=== PATIENT | female | born 1955 | race Caucasian/White ===

== ENCOUNTER 2018-12-19 21:49 | Emergency (ER) | payer MEDICARE, SELFPAY ==
[2018-08-22 09:48] VITALS: BMI 34.2
[2018-12-19 21:50] VITALS: BP 161/88; PULSE 68; RESP 18; TEMP 36.8; O2SAT 97; BMI 35.4
--- NOTE | 2018-12-19 21:54 | US_ITS ---
STUDY: ABDOMINAL ULTRASOUND - RIGHT UPPER QUADRANT REASON FOR VISIT: Female, 63 years old. Right upper quadrant pain. TECHNIQUE: Ultrasound evaluation of the right upper quadrant was performed with real-time and static bach-scale imaging. TECHNICAL QUALITY: Adequate. COMPARISON: None. FINDINGS: Liver: The liver measures 15.3 cm. There is increased echogenicity consistent with fatty infiltration. The bile ducts are within normal limits. There is hepatic color flow. The direction of portal flow is hepatopetal. Gallbladder: Normal distended gallbladder. The gallbladder wall measures 2 mm. There is a negative sonographic Feliz's sign. There is no pericholecystic fluid. Multiple shadowing gallstones. Common Bile Duct (C.B.D.): The common bile duct measures 3 mm. Pancreas: Demonstrated portions are unremarkable. Distal body and tail are not seen Right Kidney: Normal size of the right kidney. The right kidney measures 11.9 x 3.9 x 5 cm. Normal renal cortex. The right cortex measures 1.1 cm. There is no demonstrated renal mass or cyst. There is no right hydronephrosis. US/Gallbladder IMPRESSION: 1. Cholelithiasis. No acute cholecystitis. 2. Hepatic steatosis. Electronically Signed: Hannah Jason MD at 23:59 EDT Tel , Service support ,
--- NOTE | 2018-12-19 21:56 | ED.DCSUM_ITS ---
History of Present Illness Chief Complaint: Abd Pain Informant: Patient Onset: Today Context: Sudden Onset Timing: Continuous Current Severity: Moderate Maximum Severity: Moderate Narrative: The patient is a previously healthy 63-year-old female with no significant medical history presents to the emergency department with approximately 2 hours of persistent pain in her right upper quadrant that radiates to her back. She states that she ate dinner around 5:00. She states she had a steak and baked potato. She states about an hour and 1/2 to 2 hours after that, she began to have this pain. She states that this is the fourth time she is had it, but she is never had to seek care because it will usually go away. She denies any fevers. She does admit to some nausea. States pain radiates under her shoulder. The patient has history of prior abdominal hysterectomy. She has not found anything that improve the symptoms. Prior similar symptoms: Yes Recent Illness/Hospitalization: No Past Medical History - Allergies and Home Meds Allergies/Adverse Reactions: Allergies No Known Allergies Allergy (Verified 12/19/18 21:50) Primary Care Physician: Mo Rojas [Primary Care Provider] - Prior records reviewed: Yes Past Medical History: None Surgical History: no surgical history Smoking Status: Never smoker Review of Systems General: Denies: Chills, Fever, Sweats Eyes: Denies: Visual changes - bilaterally, Diplopia ENT: Denies: Rhinorrhea, Sore throat Cardiovascular: Denies: Chest pain, Palpitations Respiratory: Denies: Dyspnea, Cough, Dyspnea on exertion Gastrointestinal: Reports: Abdominal pain, Nausea. Denies: Vomiting, Diarrhea, Melena, Hematochezia Genitourinary: Denies: Dysuria, Hematuria, Frequency Musculoskeletal: Denies: Back pain, Extremity Pain Skin: Denies: Rash, Wounds Neurological: Denies: Headache, Weakness, Numbness Physical Exam Vital Signs/Narrative: Vital Signs Temp Pulse Resp BP Pulse Ox 12/19/18 21:50 98.3 F 68 18 161/88 H 97 Inital Vital Signs reviewed: Yes General: Well nourished, Well developed, No Acute Distress Head: Normocephalic, Atraumatic Eyes: Perrl, EOMI ENT: Moist mucous membranes, No rhinorrhea Neck: Supple, Nontender Cardiovascular: Regular rate, Regular rhythm, No murmurs Respiratory: No distress, CTA bilaterally, Chest nontender Abdomen: Soft, Nondistended, Normal bowel sounds, No masses, Tender Back: Nontender, Normal Inspection Extremities: Nontender, No edema Skin: Normal color, No rash Neurological: Alert, Oriented x3, Cranial nerves II-XII grossly intact, Normal Strength, Normal Sensation Psychological: Normal affect, Normal Mood Diagnostic/Tx/Re-eval Abnormal Lab Results 12/19/18 12/19/18 22:00 22:00 WBC 11.5 H RBC 5.44 H Hgb 14.3 Hct 44.5 MCV 81.8 MCH 26.3 L MCHC 32.1 RDW Std Deviation 40.6 RDW Coeff of James 13.8 Plt Count 318 MPV 10.2 Immature Gran % (Auto) 0.300 Neut % (Auto) 52.3 Lymph % (Auto) 36.6 Cavalier % (Auto) 7.9 Eos % (Auto) 2.4 Baso % (Auto) 0.5 Absolute Neuts (auto) 6.0 Absolute Lymphs (auto) 4.22 Nucleated RBC % 0 Sodium 140 Potassium 3.9 Chloride 105 Carbon Dioxide 26.0 Anion Gap 9 BUN 18 Creatinine 0.96 Estim Creat Clear Calc 41.97 Est GFR (MDRD) Af Amer 75 Est GFR (MDRD) Non-Af 62 BUN/Creatinine Ratio 18.7 Glucose 121 H Calcium 9.3 Total Bilirubin 0.30 Direct Bilirubin 0.11 AST 18 ALT 36 Alkaline Phosphatase 133 H Total Protein 7.9 Albumin 3.9 Globulin 4.0 Lipase 136 - Medical Decision Making The patient presents to the emergency department with right upper quadrant pain a few hours after eating a heavy fatty meal. She does have a positive Feliz sign. Screening labs were obtained. The patient was given analgesics and antiemetics. Her pain had resolved. Screening labs do show mild leukocytosis which I feel is likely reactive, but there is no obstructive pattern of the liver functions. Patient was sent for formal ultrasound. This shows a normal common bile duct and a normal bladder wall. She does have large stones and some sludge. My suspicion is that she has symptomatic biliary colic. However, she has no evidence of acute cholecystitis or obstruction. She is now pain-free. I did discuss the patient with Dr. Nino for close follow-up as I do feel the patient is likely going to need outpatient cholecystectomy. The patient is comfortable with this plan of care. She was counseled on foods to avoid and dietary modifications. She will be given a short course of analgesics and appropriate outpatient follow-up. She was also counseled on reasons to return to the emergency department. Impression 1. Symptomatic biliary colic ED Disposition - Plan for ED Patient: Instructions: BILIARY COLIC with Gallstone (Confirmed) Prescriptions: Hydrocodone Bitart/Apap 5-325 [Rougon 5MG-325MG] 1 tab PO Q6H PRN PRN 3 Days #10 tab PRN Reason: Pain Prescription Printed Ondansetron [Zofran Odt] 4 mg PO Q8H PRN PRN #10 tab PRN Reason: Nausea Prescription Printed Referrals: Darcie Nino MD [STAFF PHYSICIAN] -
[2018-12-19] MEDS: Ondansetron 4 MG/2 ML Vial IV (22:04)
[2018-12-19] MEDS: Ketorolac 30 MG/ML Syringe IV (22:04)
[2018-12-19] MEDS: Morphine 4 MG/ML Syringe IV ×2 (22:04→22:44)
[2018-12-19] MEDS: 0.9% Normal Saline 1,000 ML 1000 ML IV (22:04)
[2018-12-19 22:16] LABS: Absolute Lymphocyte Count 4.22 X10^3/uL (0.83-4.51); Basophil# 0.06 X10^3/uL; Basophil% 0.5 % (0-1); Eosinophil# 0.28 X10^3/uL; Eosinophils% 2.4 % (0-5); Hematocrit 44.5 % (37-47); Hemoglobin 14.3 g/dL (12.0-15.0); Lymphocyte # 4.22 X10^3/ul (4.0); Lymphocyte % 36.6 % (19-41); Mean Corp Hgb Conc 32.1 g/dL (32-36); Mean Corpuscular Hgb 26.3 pg (27.0-32.0); Mean Corpuscular Volume 81.8 fL (81-99); Mean Platelet Vol. 10.2 fl (6.2-12.0); Monocyte# 0.91 X10^3/uL; Monocyte% 7.9 % (0-10); NRBC Flagged by Analyzer 0 % (0-5); Neutrophil # 6.01 X10^3/uL (2.7-7.7); Neutrophil % 52.3 % (47-70); Platelet Count 318 K/mm3 (150-450); RBC Distribution Width CV 13.8 % (11.6-14.6); RBC Distribution Width SD 40.6 fl (35.1-43.9); Red Blood Count 5.44 M/mm3 (4.2-5.4); White Blood Count 11.5 K/mm3 (4.4-11.0)
[2018-12-19 22:23] LABS: AST(SGOT) 18 U/L (15-37); Alanine Aminotransfer ALT/SGPT 36 U/L (13-56); Albumin, Serum 3.9 g/dL (3.2-5.0); Alkaline Phosphatase 133 U/L (45-117); Anion Gap 9 (5-15); BUN 18 mg/dL (7-18); BUN/Creat Ratio 18.7 RATIO (10-20); Bilirubin, Direct 0.11 mg/dL (0.00-0.30); Calcium,Total 9.3 mg/dL (8.5-10.1); Chloride 105 mmol/L (98-107); Creatinine, Serum 0.96 mg/dL (0.55-1.02); EST Glomerular Filtration Rate 62 mL/min (>60); Est Glom Filt Rate - Afr Amer 75 mL/min (>60); Estimated Creatinine Clearance 41.97 ml/min; Glucose 121 mg/dL (74-106); Lipase 136 U/L (73-393); Potassium 3.9 mmol/L (3.5-5.1); Protein, Total 7.9 g/dL (6.4-8.2); Sodium Level 140 mmol/L (136-145)
[2018-12-20 00:14] VITALS: BP 127/75; PULSE 70; RESP 16; O2SAT 99
== END 2018-12-20 00:15 | disposition home or self-care (01) ==
LOC: ED 22:31
PROVIDERS: Emergency Provider Emergency Medicine; Family Provider Internal Medicine; PCP Internal Medicine
DX: K80.20 Calculus of gallbladder without cholecystitis without obstruction (principal); K76.0 Fatty (change of) liver, not elsewhere classified
CPT/HCPCS: 76705; 80048; 80076; 83690; 85025; 96361; 96374; 96375; 96376; 99284; J7030; A4216; J2405

== ENCOUNTER 2018-12-29 16:49 | Observation (INO) | payer MEDICARE, SELFPAY ==
[2018-12-21 10:00] VITALS: BMI 35.4
--- NOTE | 2018-12-21 10:21 | HP_ITS ---
Intake Vital Signs 12/21/18 Body Mass Index (BMI) 35.4 12/21/18 Height 5 ft 12/21/18 Weight: 180 lb 6 oz 12/21/18 Body Mass Index (BMI) 35.2 12/21/18 Blood Pressure 116/72 12/21/18 Blood Pressure Location Rt brachial 12/21/18 Respiratory Rate 20 H 12/21/18 Pulse Rate 79 12/21/18 Pulse Ox 96 Intake Visit Reasons: ER F/U Gall Stones Chief Complaint: RUQ pain, gallstones Starchmaker Required: No Is patient in pain?: No Allergies No Known Allergies Allergy (Verified 12/21/18 09:49) Medications Escitalopram Oxalate 20 mg PO DAILY 12/19/18 [History Confirmed 12/21/18] Is last menstrual period known: No Post menopausal: Yes Patient : No PFSH Medical History (Updated 12/21/18 @ 09:47 by Nan Hathaway) Anxiety (Acute) GERD (gastroesophageal reflux disease) (Acute) Hemorrhoid (Acute) HISTORY OF TORN MENISCUS (Acute) History of hysterectomy (Acute) Surgical History (Updated 12/21/18 @ 09:47 by Nan Hathaway) History of arthroscopy of both knees (Acute) History of bilateral breast implants (Acute) History of colonoscopy (Acute ~2015) History of carpal tunnel surgery (Acute) Family History (Updated 12/21/18 @ 09:48 by Nan Hathaway) Mother Heart disease Myocardial infarction Father Alzheimer disease Social History (Updated 12/21/18 @ 10:21 by Darcie Nino MD) Smoking Status: Never smoker HPI HPI HPI: MILTON HARDWICK, is a 63 F who presents to the office today for HPI HPI Surgical H&P: Yes HPI: MILTON HARDWICK, is a 63 F who presents to the office today for gallstones. Patient states since last April she has had 4 attacks with right upper quadrant pain first time she went to the ER was last 12/19/2017. Patient right upper quadrant pain after eating steak. Patient denied any nausea or vomiting. Patient had an ultrasound that showed a normal gallbladder wall 2 mm, multiple gallstones, fatty liver, normal common bile duct at 3 mm. Patient's white blood cell counts was normal as well as LFTs. Patient has not been previously trying to avoid any fatty greasy foods however she did think she possibly had gallstones and did stop eating peanuts. Patient states when she gets it she gets the right upper quadrant pain that goes towards the back. Patient denies any reflux except for maybe once a month however she does admit to coughing at night which wakes her up nightly and denies any history of smoking or COPD. Patient states he has bowel movements daily she does have occasional blood in the toilet only about 2 times in the last year her colonoscopy in 2016 was negative per patient just had some internal hemorrhoids. ROS General General: Yes fatigue; no weight change, colon cancer, breast cancer or weakness HEENT HEENT: No difficulty swallowing, eye injury, eye surgery, swollen glands or hoarseness Endo Endocrine: No thyroid disease, diabetes mellitus, thyroid cancer, Hair loss, heat intolerance or cold intolerance Cardio Cardiovascular: No murmur, pacemaker, heart disease, atrial fibrillation, high blood pressure, heart attack, heart stent, palpitations, shortness of breat with exertion or chest pain Resp Respiratory: No shortness of breath, No sleep apnea, Yes cough, No COPD, No asthma, No emphysema, No wheezing Gastro Gastrointestinal: Yes abdominal pain, No nausea or vomiting, No diarrhea, No constipation, Yes blood in stool, Yes acid reflux, Yes hemorrhoids, No ulcers, Yes gallbladder problem, No black,tarry stools Neuro Neurologic: No weakness Exam Const General: cooperative, comfortable, no acute distress Resp Effort & Inspection: normal respiratory effort Cardio Rate: regular rate Heart Sounds: no murmurs GI Inspection: non-distended Palpation: soft, no guarding, tender (No peritoneal signs) in the epigastrum and in the RUQ; Negative for Feliz's sign negative Assessment & Plan Problems 1. Cholelithiasis K80.20 2. Gastroesophageal reflux disease K21.9 Plan Discussed with patient that likely her nightly coughing that wakes her up can be a symptom of reflux would recommend patient take omeprazole 40 mg p.o. daily prior to surgery, did discuss with patient that she needs to take this daily or it will not be effective and it may not work for the first couple of days. Reviewed the anatomy with the patient and discussed the procedure: laparoscopic cholecystectomy with cholangiograms, possible open. Review risks including but not limited to bleeding, infection, hernia, bile leak, retained gallstones requiring another procedure ERCP- Endoscopic Retrograde Cholangiopancreatography, injury to another organ (bile ducts, common bile duct, small bowel, etc.) may require transfer to a tertiary care facility and conversion to an open procedure . All questions were answered. Patient and her no further questions this time. Did encourage patient stay with small fatty or greasy foods. Darcie Nino M.D. Pager: [phone] [facility] [address] [place] [address], [address] [place] [address] Office: [phone] Plan Detail Follow Up We will schedule laparoscopic cholecystectomy Coding Level of Care Code Off vis,new,level 3 Diagnoses Cholelithiasis K80.20 Gastroesophageal reflux disease K21.9 12/21/18 1021 <Electronically signed by Darcie Enamorado am, MD> Date _ Darcie Nino MD I have examined the patient the following changes are noted: Patient denies having having any increased right upper quadrant pain since office appointment.
[2018-12-29] VITALS (20 sets, daily range): BP systolic 100–152; BP diastolic 54–86; PULSE 65–97; RESP 14–18; TEMP 36.2–37.3; O2SAT 90–100; BMI 35.4; BMI 28.3
--- NOTE | 2018-12-29 06:15 | EKG12_ITS ---
Test Reason : PRE OP Blood Pressure : / mmHG Vent. Rate : 063 BPM Atrial Rate : 063 BPM P-R Int : 134 ms QRS Dur : 080 ms QT Int : 428 ms P-R-T Axes : 038 061 050 degrees QTc Int : 437 ms Normal sinus rhythm Normal ECG No previous ECGs available Confirmed by VASU SAUCEDO, JACOBO ([id number]), sound editor TANVI CHACON ([id number]) on 01/05/2019 10:32:52 AM Referred By: Darcie Nino Confirmed By:SHAWNA LEONE MD
[2018-12-29] MEDS: Lactated Ringers 1,000 ML 100 ML IV ×4 (06:38→16:56)
[2018-12-29] MEDS: Cefazolin 2 GM in 0.9% Normal Saline 100 ML IV (07:54)
--- NOTE | 2018-12-29 08:00 | GALL_PTH ---
PATIENT: MILTON HARDWICK LOC: MS3 U#:[id number] AGE/SX: 63/F ROOM: MS317 RE12/29/[address]: Dr. Darcie Nino MD : 1955 BED: 1 DIS: 12/30/2018 SPEC #: [id number] RECD: 12/29/18 11:20 STATUS: VISH REJohn #: [id number] DAVIDA: 12/29/18 08:[address]: Darcie Nino DEPT: SURGICAL PATHOLOGY RECD BY: Teresita Nazario ENTERED: 12/29/18 11:40 SP TYPE: ADRIEN JAIME DR: Dr. Mo Rojas MD Tissues: Gallbladder, NOS Procedures: Surgery Specimen Level III HEADER OPERATION: Laparoscopic cholecystectomy with intraoperative cholangiograph PRE-OP DIAGNOSIS: Cholelithiasis K80.20 TISSUE SUBMITTED: Gallbladder MICROSCOPIC DIAGNOSIS Gallbladder, cholecystectomy: Chronic cholecystitis, cholelithiasis and focal cholesterolosis. A pericystic lymph node with reactive changes. BRIAN:mikayla 12/30/18 MICROSCOPIC DESCRIPTION Slides are reviewed. GROSS DESCRIPTION Received is one container labeled with the patient's name and designated gallbladder. The specimen consists of a gallbladder measuring 9 cm in length and up to 3 cm in diameter. The external surface is pink-wong, smooth and glistening for the most part. Focally it is granular, hemorrhagic and contains cautery artifact. The gallbladder contains greenish-brown mucoid bile and six variable sized mulberry to multifaceted greenish-yellow to brown stones measuring in aggregate 4 x 3 x 2 cm and 1 to 2 cm in greatest dimension. The mucosa is bile-stained and without any mass lesions. The gallbladder wall measures up to 0.2 cm in thickness. Also present close to the cystic duct is an ovoid wong-pink nodule, a possible lymph node, measuring 1.5 cm in greatest dimension. Splicing Machine Operator Automatic sections from the gallbladder and the cystic duct are submitted in one cassette including entire possible lymph node. / BRIAN:mikayla 12/29/18 TC:3 CPT: 30791
--- NOTE | 2018-12-29 08:00 | RAD_ITS ---
CLINICAL HISTORY: Female, 63 years old. Abdominal pain PROCEDURE: CHOLANGIOGRAM - intraoperative FLUOROSCOPY TIME (if supplied): (0:07) minutes/seconds TECHNIQUE: (All elements of maximal sterile barrier technique followed, including US elements as applicable) 7 seconds of fluoroscopy of the abdomen was utilized and not operating room and 30 images were obtained of an intraoperative plantar and. Next FINDINGS: A cannula seen in the cystic duct remnant. Examination the common bile duct is normal without evidence of abnormal stricture, dilatation, or filling defect to suggest common bile duct stone. There is spillage of contrast through the ampulla into the duodenum RAD/Cholangiogram/ O R,Initial IMPRESSION: No common bile duct stone. Electronically Signed: Fahad George MD at 9:58 EDT Tel , Service support ,
[2018-12-29] MEDS: Bupivacaine Mpf 0.5% 30 ML VIAL (09:42)
--- NOTE | 2018-12-29 09:44 | PCM.OPRPT ---
Report of Operation Date of Procedure: 12/29/18 Pre-Operative Diagnosis: Symptomatic cholelithiasis Post-Operative Diagnosis: Same Surgery/Procedure Performed:: Laparoscopic cholecystectomy with cholangiograms court specialist: Dori Banuelos court specialist: Laure Gordon Type of Anesthesia:: General/Supplemental Anesthesiologist: Nnamdi Younger Special Medications: Ancef 2 g IV x1 Specimen's removed: Gallbladder Estimated Blood Loss (mL): 20 cc Fluids Replaced: 1000 cc Description of Procedure: Indications this is a 63 year-old female who developed abdominal pain/nausea/vomiting and on workup was found to have cholelithiasis, with a normal common bile duct and LFTs. Laparoscopic cholecystectomy was elected. Description procedure: The patient was placed on operating table in supine position. General Anesthesia was induced. A timeout was completed verifying correct patient, procedure, site, position and special equipment prior to beginning procedure. The abdomen was prepped and draped in usual sterile fashion. An incision was made in the natural skin line above the umbilicus. The fascia was elevated and incised. The peritoneum was elevated and incised. Entry into the peritoneum was confirmed visually and no bowel was noted in the vicinity of the incision. Monteiro trocar was placed. The abdomen was insufflated with carbon dioxide to a pressure of 12-15 mmHg. Patient tolerated insufflation well. The laparoscope was then inserted and abdomen inspected. No injuries from initial trocar placement were noted. Additional trochars were then inserted in the following locations 5 mm trocar in the epigastrium and 2 more 5 mm trochars along the right costal margin. The abdomen was inspected no abnormalities were found. The table is placed in reverse Trendelenburg position with the right side up. The adhesions between the gallbladder and omentum were lysed sharply. The dome of the gallbladder was grasped with atraumatic grasper passed through the lateral port and retracted over the dome of the liver. Infundibulum was then grasped with atraumatic grasper through the midclavicular port and retracted to the right lower quadrant. This maneuver exposed Calot's triangle. The peritoneum overlying the gallbladder infundibulum was then incised and cystic duct and artery identified and circumferentially dissected. Attempts to use the Hurt catheter however unable to get the stone at the neck of the gallbladder out of the way. Change to the Ranfac catheter for cholangiograms. 15 blade scalpel to make a separate right upper quadrant incision to accommodate the Ranfac catheter. Cholangiogram did show good flow of bile into the duodenum with no filling defects as well as into the left and right bile ducts. The cystic duct and artery were then doubly clipped and divided close to the gallbladder. The gallbladder then dissected from its peritoneal attachments by electrocautery. The argon beam was used for some bleeding from the liver bed. Hemostasis was checked and the gallbladder and contained stones were removed using the endoscopic retrieval bag through the umbilical port. The gallbladder is passed off table as specimen. The gallbladder fossa was copiously irrigated with saline and hemostasis obtained. There is no evidence of bleeding from the gallbladder fossa or cystic artery leakage of bile from the cystic duct stump. Secondary trochars removed under direct vision. No bleeding was noted the trocar sites. The laparoscope was withdrawn and umbilical trocar removed. The abdomen was allowed to collapse. The fascia of the 12 mm trocar was closed with a [id number] 0 Vicryl suture. The skin was closed with sutures of 4-0 Monocryl and Steri-Strips. The orogastric tube was removed and the patient was extubated. The patient tolerated procedure well and was taken to the postanesthesia care unit in stable condition. - Complications none
--- NOTE | 2018-12-29 09:49 | DCINST_ITS ---
Discharge Diet: Light diet - advance as tolerated Discharge Activity: May not drive while taking narcotic pain medications. May shower in (days): 1 Lifting Restrictions: No lifting greater than 20 pounds x 4 weeks, no strenuous exercise for 6 wk Call your doctor if your incision/area has: Continuous Slow Oozing, Sudden Increased Bleeding, Increased Pain/ Swelling, Increased Redness, Foul Smelling Discharge, Swelling at the incision site Call your doctor if you observe: Fever of 101 or Higher Remove Dressing in (days):: 1 - I was okay to remove op sites tomorrow, Steri- Strips were stay on for 10 days if they do not follow-up in 10 days okay to remove Additional Instructions: Okay to take ibuprofen 400-600 mg PO q6hr PRN along with the Percocet. Avoid Tylenol since there is already Tylenol in the Percocet. Take all pain meds with food. Percocet can cause constipation recommend taking daily stool softener (i.e. Colace/docusate) while taking the pain meds. Recommend starting some MiraLAX in 1 to 2 days if no bowel movement. If still no bowel movement following day recommend taking magnesium citrate half the bottle and waiting 4-6 hours if still no results take the other half the bottle. Allergies/Adverse Reactions: Allergies No Known Allergies Allergy (Verified 12/29/18 06:18) Medications to take at Discharge Escitalopram Oxalate 20 mg PO DAILY 12/19/18 Omeprazole [Prilosec] 40 mg PO DAILY 12/27/18 Oxycodone HCl/Acetaminophen [Percocet 5/325] 1 - 2 tablet PO Q6H PRN PRN 4 Days #20 tablet 12/29/18 Primary Care Physician: Mo Rojas [Primary Care Provider] - Test Results: Test results from this visit will be discussed in further detail at your follow- up appointment, if applicable. Please Follow Up With: Darcie Nino MD - After 5:00 and on the weekends call [phone] with any concerns When: Call the office for follow-up appointment 2 weeks. Proposed Discharge Date: 12/29/18
[2018-12-29] MEDS: Ipratropium/Albuterol Sulfate 3 ML AMPUL.NEB INHALATION (11:46)
--- NOTE | 2018-12-29 13:24 | SUR.PHASEII ---
PT. RESTING IN BED ON O2 AT 3L. PULSE OX 96% O2 TURNED DOWN TO 2L.
--- NOTE | 2018-12-29 13:50 | SUR.PHASEII ---
o2 at 2l pulse ox 94% o2 turned down to 1liter will continue to monitor.
--- NOTE | 2018-12-29 16:20 | SUR.PHASEII ---
PT. UP AMBULATED IN FELIX UPON RETURN TO ROOM 85%. O2 REAPPLILED AT 1L WITHIN 30 SECONDS PULSE OX BACK UP TO 94%.
--- NOTE | 2018-12-29 16:45 | SUR.PHASEII ---
PT. RESTING IN BED QUIETLY SPOUSE AT BEDSIDE. O2 OFF FOR APPROX 15 MINUTES PULSE OX 90-92%. DR. NITA CHRISTINE.
--- NOTE | 2018-12-29 17:12 | SUR.PHASEII ---
REPORT CALLED TO 3RD FLOOR JUDSON GREER RN PT. TRANSFERRED PER BED.
[2018-12-29] MEDS: Ibuprofen 400 MG Tablet PO (21:20)
[2018-12-30] VITALS (7 sets, daily range): BP systolic 118–127; BP diastolic 54–57; PULSE 68–111; RESP 16–20; TEMP 36.7–37.1; O2SAT 87–96
--- NOTE | 2018-12-30 04:46 | NURSING ---
pt walked a full lap in the cruz. hr 111 & pulse ox 88. pt returned to bed and applied 1 L O2. recovered quickly
--- NOTE | 2018-12-30 06:52 | PCM.PN.SRG ---
Subjective: pt dropped to 88% w walking, pain controlled - Physical Exam General: Alert, Oriented x3, Cooperative, No apparent distress Lungs: Normal air movement Cardiovascular: Regular rate Abdomen: Soft, Non-Distended, Tender - at incisions, no PS Extremities: No clubbing, No cyanosis, No edema Psych/Mental Status: Normal Affect Vital Signs Temp Pulse Resp BP Pulse Ox 98.1 F 68 18 118/54 L 93 12/30/18 04:12 12/30/18 04:23 12/30/18 04:23 12/30/18 04:12 12/30/18 04:23 Oxygen Flow Rate (L/min) 1 Oxygen Delivery Method Room Air Weight: 186 lb Body Mass Index (BMI) 28.3 Intake and Output for Last 24 Hours 12/28/18 12/29/18 12/30/18 23:59 23:59 23:59 Intake Total 2958.33 / 2958.33 200 / 200 Balance 2958.33 / 2958.33 200 / 200 Medical Necessity - Tobacco Use Smoking Status: Never smoker Tobacco Use: Non-smoker Assessment/Plan s/p lap toñito if can keep the O2 up to >90% w walking ok to d/c
--- NOTE | 2018-12-30 11:12 | NURSING ---
pt was ambulating in hallway, stopped her and put on pulse ox, O2 was at 88%. waited in hallway for 1 minute and pulse ox came up to 93% on room air. began ambulating again and maintained O2 for 1/4 of hallway, then O2 dropped again to 88%. on return to room, pulse ox again came up without oxygen intervention. Dr Nino notified and gave verbal ok for pt to be discharged at this time as she is recovering quickly and without intervention.
== END 2018-12-30 13:00 | disposition home or self-care (01) ==
LOC: MS3 12-30 08:04
PROVIDERS: Admitting Provider Surgery; Family Provider Internal Medicine; PCP Internal Medicine; Referring Provider Surgery; Visit Provider Surgery
PROC: (CPT 47610; principal; 2018-12-29 07:40)
DX: K80.10 Calculus of gallbladder with chronic cholecystitis without obstruction (principal); K21.9 Gastro-esophageal reflux disease without esophagitis; F41.9 Anxiety disorder, unspecified; Z79.899 Other long term (current) drug therapy
CPT/HCPCS: 47563; 74300; 76000; 88304; 93005; 94640; 99218; J7120; G0378; G0379; J2405

== ENCOUNTER → 2020-10-18 08:41 | Outpatient (CLI) | payer MEDICARE, SELFPAY ==
[2018-12-29 17:28] VITALS: BMI 28.3
[2020-10-18 09:32] LABS: Absolute Lymphocyte Count 2.03 X10^3/uL (0.83-4.51); Absolute Neutrophil Count 3.9 X10^3/uL (2.0-7.7); Basophil# 0.03 X10^3/uL; Basophil% 0.4 % (0-1); Eosinophil# 0.28 X10^3/uL; Eosinophils% 4.1 % (0-5); Hemoglobin 13.5 g/dL (12.0-15.0); Lymphocyte # 2.03 X10^3/ul (0.83-4.51); Lymphocyte % 29.6 % (19-41); Mean Corp Hgb Conc 31.4 g/dL (32-36); Mean Corpuscular Hgb 25.3 pg (27.0-32.0); Mean Corpuscular Volume 80.7 fL (81-99); Mean Platelet Vol. 9.8 fl (6.2-12.0); Monocyte# 0.51 X10^3/uL; Monocyte% 7.4 % (0-10); NRBC Flagged by Analyzer 0 % (0-5); Neutrophil # 3.93 X10^3/uL (2.7-7.7); Neutrophil % 57.5 % (47-70); POSITIVE MORPHOLOGY YES; Platelet Count 268 K/mm3 (150-450); RBC Distribution Width CV 14.6 % (11.6-14.6); RBC Distribution Width SD 42.2 fl (35.1-43.9); Red Blood Count 5.33 M/mm3 (4.2-5.4); White Blood Count 6.9 K/mm3 (4.4-11.0)
[2020-10-18 09:33] LABS: Differential Indicated SCAN CRITERIA MET
[2020-10-18 09:58] LABS: Albumin, Serum 3.6 g/dL (3.2-5.0); Anion Gap 7 (5-15); BUN 12 mg/dL (7-18); Calcium,Total 9.1 mg/dL (8.5-10.1); Chloride 104 mmol/L (98-107); EST Glomerular Filtration Rate 88 mL/min (>60); Est Glom Filt Rate - Afr Amer 106 mL/min (>60); Glucose 116 mg/dL (74-106); Potassium 4.1 mmol/L (3.5-5.1); Sodium Level 137 mmol/L (136-145)
[2020-10-18 10:02] LABS: Differential Comment SCANNED; Reactive Lymphocyte 2+
== END ==
PROVIDERS: PCP Internal Medicine; Referring Provider Physician Assistant Surgical; Visit Provider Physician Assistant Surgical
DX: Z01.812 Encounter for preprocedural laboratory examination (principal); Z01.810 Encounter for preprocedural cardiovascular examination
CPT/HCPCS: 36415; 80048; 82040; 85025